=== PATIENT | male | born 1940 | race Caucasian/White ===

== ENCOUNTER 2017-01-14 11:20 | Emergency (ER) | payer MEDICARE ==
[~2017-01-14] VITALS: Ht 175.3 cm; Wt 83.9 kg
[~2017-01-14 11:20] MED LIST: ASPI81TA85 PO; ATOR40TA PO; CLOP75TA2 PO; LISI-538 PO; METF850T PO; OMEP20CA3 PO; PRESCAP PO; TOPR25TA PO
[2017-01-14] MEDS ORDERED: METF850T PO (11:33)
[2017-01-14] MEDS ORDERED: METO50TA2 PO (11:33)
[2017-01-14] MEDS ORDERED: cefTRIAXone SOD 1 GM in D5W MINI-BAG PLUS 50 ML IV ONE (12:00)
[2017-01-14] MEDS ORDERED: NS 1,000 ML IV ONE (12:00)
[2017-01-14] MEDS ORDERED: TETANUS/DIPHTHERIA TOX ADSORB ADULT 0.5ML SYR/VIAL (90714) IM ONE (12:00)
[2017-01-14] MEDS ORDERED: ACETAMINOPHEN 325 MG TAB PO ONE (12:00)
[2017-01-14] MEDS ORDERED: MORPHINE 2 MG/ML 1ML SYRINGE IV ONE (12:15)
[2017-01-14 12:26] LABS: BASO # 0.1 K/mm3 (0.0-0.2); BASO % 1.1 % (0.0-1.0); EOS # 0.3 K/mm3 (0.0-0.50); EOS % 3.6 % (0.0-3.0); LARGE UNSTAINED CELL # 0.2 K/mm3 (0.0-0.4); LARGE UNSTAINED CELL % 1.8 % (0.0-4.0); LYMPH # 1.7 K/mm3 (1.5-4.5); LYMPH % 18.4 % (24.0-44.0); MEAN CORPUSCULAR HEMOGLOBIN 29.3 pg (27.0-33.0); MEAN CORPUSCULAR HGB CONC 33.2 g/dl (32.0-36.5); MEAN CORPUSCULAR VOLUME 88.2 fl (80.0-96.0); MONO # 0.4 K/mm3 (0.0-0.8); MONO % 4.3 % (0.0-5.0); NEUTROPHILS # 5.9 K/mm3 (1.8-7.7); NEUTROPHILS % 70.8 % (36.0-66.0); PLATELET COUNT, AUTOMATED 280 k/mm3 (150-450); RED CELL DISTRIBUTION WIDTH 13.2 % (11.5-14.5); WHITE BLOOD COUNT 8.4 K/mm3 (4.0-10.0)
[2017-01-14] MEDS ORDERED: LIDOCAINE 2% MDV 20 ML VIAL As Ordered ONE (12:43)
[2017-01-14 12:44] LABS: ANION GAP 7 MEQ/L (8-16); BLOOD UREA NITROGEN 17 MG/DL (7-18); CALCIUM LEVEL 8.5 MG/DL (8.8-10.2); CARBON DIOXIDE LEVEL 27 MEQ/L (21-32); CHLORIDE LEVEL 106 MEQ/L (98-107); CREATININE FOR GFR 0.92 MG/DL (0.70-1.30); GLOMERULAR FILTRATION RATE > 60.0 (>42); GLUCOSE, FASTING 149 MG/DL (83-110); POTASSIUM SERUM 4.1 MEQ/L (3.5-5.1); SODIUM LEVEL 140 MEQ/L (136-145)
[2017-01-14] MEDS ORDERED: LIDOCAINE 2% MDV 20 ML VIAL SC ONE (12:45)
--- NOTE | 2017-01-14 13:52 | REP ---
LEFT HAND: HISTORY: Partial amputation 4th digit. There has been traumatic amputation of the distal aspect of the 4th digit which includes the distal aspect of the middle phalanx. There is overlying bandage material obscuring the bony detail and also soft tissue detail. Signed by Jay Boston DO 01/14/2017 02:47 P
[2017-01-14] MEDS ORDERED: AUGM875T27 PO (14:29)
[2017-01-14] MEDS ORDERED: OXYC1TAB23 PO (14:29)
[2017-01-14 15:16] VITALS: BP 169/80
--- NOTE | 2017-01-14 16:33 | REP ---
LEFT HAND: REASON: Followup. COMPARISON: Earlier today. There has been partial amputation of the 4th digit. The only remaining features are all of the proximal phalanx and approximately one-half of the middle phalanx. Bandage material is seen surrounding the soft-tissue defect. Chronic changes seen involving the hand and wrist. IMPRESSION: Post-procedural findings as described above. Signed by Jay Boston DO 01/15/2017 09:55 A
--- NOTE | 2017-01-15 01:32 | ER ---
DATE OF CONSULTATION: 01/14/2017 SUBJECTIVE: The patient presented to the emergency room after sustaining an injury to his left hand ring finger with a hydraulic wood splitter. Noticed complete amputation of that involved digit and presented promptly to the emergency room. This is his isolated complaint. I came and saw the patient promptly. He had a digital tourniquet in place, which was removed right away. At this point, he had active venous oozing out of the tip of the oblique laceration and a complete amputation of the left hand ring finger. PAST MEDICAL HISTORY: He is taking blood thinners. OBJECTIVE: Awake, alert and oriented times three. Well-appearing male in no acute distress resting comfortably in bed. Again, after removing the digital tourniquet, venous bleeding was controlled with the battery powered cautery and following that by a hemostat clamp applied to the digital vein with satisfactory effect. This was an oblique complete amputation of the ring finger with an exposed bone and exposed tendon. He did have intact flexion and extension at the middle phalanx. The x-rays showed a complete amputation of the involved digit at the distal interphalangeal joint level. ASSESSMENT: Complete amputation of left hand ring finger at the level of the middle phalanx as above. PLAN: After discussing all of the options with him to include the possibility of some form of reattachment, he elected to go forward with acute revision amputation. The wound was copiously irrigated. I did have to remove a centimeter or so of the middle phalanx in order to perform a tension free closure. This was done with satisfactory effect with nylon sutures. Following this, hemostasis was intact and the bone was completely covered. He still maintained intact flexion and extension at the proximal interphalangeal joint. The wound edges were pink and well perfused. Post revision amputation x-rays confirmed the shortened middle phalanx, as well diffuse age-related changes and osteoarthritis and as well an apparent remote well-healed fracture of the middle phalanx of the middle finger. He did have a small dorsal laceration in this area with no obvious tendon involvement. He was placed in sterile dressings. He had been given a dose of intravenous (IV ) antibiotics. He will be discharged to home on oral antibiotics. Local monitoring. If he notices a soaking through or bleeding through, he is to present promptly to the emergency room, otherwise keep the dressings clean and dry. Followup in less than 48-72 hours with the orthopedic group for evaluation and wound check. The stitches to stay in place for 10-14 days. All of his questions were answered and he is satisfied with the treatment plan at this time. [place]
== END 2017-01-14 15:18 | disposition home or self-care (01) ==
LOC: M ED 12:12
DX: S68.115A Complete traumatic metacarpophalangeal amputation of left ring finger, initial encounter (principal); W31.89XA Contact with other specified machinery, initial encounter; Y92.89 Other specified places as the place of occurrence of the external cause; Y93.89 Activity, other specified; Y99.8 Other external cause status; I10 Essential (primary) hypertension; E11.9 Type 2 diabetes mellitus without complications; E78.00 Pure hypercholesterolemia, unspecified; K21.9 Gastro-esophageal reflux disease without esophagitis; Z95.5 Presence of coronary angioplasty implant and graft; Z79.899 Other long term (current) drug therapy; Z79.82 Long term (current) use of aspirin; Z79.01 Long term (current) use of anticoagulants; Z79.84 Long term (current) use of oral hypoglycemic drugs; Z87.891 Personal history of nicotine dependence
CPT/HCPCS: 11042; 12002; 73130; 80048; 85025; 90714; 99284; J0696

== ENCOUNTER 2017-06-21 06:48 | Day surgery (SDC) | payer MEDICARE ==
[~2017-06-21] VITALS: Ht 172.7 cm; Wt 85.7 kg
[~2017-06-21 06:48] MED LIST changes: -ATOR40TA PO; +ATOR40TA75 PO; +AUGM875T28 PO; +LISI20TA PO; -METF850T PO; +METF850T4 PO; +METO25TA4 PO; +METO50TA7 PO; +OXYC1TAB23 PO
[2017-06-21] MEDS ORDERED: PHENYLEPHRINE 2.5% OPHTH SOL 2ML XX ONE (07:00)
[2017-06-21] MEDS ORDERED: LIDOCAINE 1% MDV 20ML VIAL SQ PRN (07:00)
[2017-06-21] MEDS ORDERED: LR 500 ML IV SCH (07:00)
[2017-06-21] MEDS ORDERED: TROPICAMIDE 1% OPHTH SOLN 2ML XX ONE (07:00)
[2017-06-21] MEDS ORDERED: OFLOXACIN 0.3 % (OCUFLOX) OPTH SOL 5ML XX ONE (07:00)
[2017-06-21] MEDS ORDERED: PROPARACAINE 0.5% OPHTH SOL 15ML XX ONE (07:00)
[2017-06-21] MEDS ORDERED: fentaNYL 100 MCG/2 ML INJECTION (J3010) As Ordered ONE (07:08)
[2017-06-21] MEDS ORDERED: MIDAZOLAM INJ 2 MG/2 ML VIAL (J2250) As Ordered ONE (07:08)
[2017-06-21] MEDS ORDERED: POVIDONE-IODINE 5% OPHTH PREP SOL 30ML As Ordered ONE (07:44)
[2017-06-21] MEDS ORDERED: ACETYLCHOLINE OPHTH SOLN 1% 2ML (MIOCHOL-E) As Ordered ONE (07:44)
[2017-06-21] MEDS ORDERED: CEFUROXIME 1MG/0.1ML INTRACAMERAL INJ As Ordered ONE (07:45)
[2017-06-21] MEDS ORDERED: BALANCED SALT IRRIGATION SOLUTION 500ML BAG (FOR OR EYE MACHINE) As Ordered ONE (07:45)
[2017-06-21] MEDS ORDERED: TETRACAINE 0.5% OPHTH SOLN 4ML As Ordered ONE (07:45)
[2017-06-21] MEDS ORDERED: DUOVISC (0.50ML VISCOAT/0.55ML PROVISC) OPHTH KIT As Ordered ONE (07:45)
[2017-06-21] MEDS ORDERED: LIDOCAINE 0.75%/EPINEPHRINE 0.025% IN BSS 1ML SYR INTRACAMERAL (OR ONLY) As Ordered ONE (07:45)
[2017-06-21] MEDS ORDERED: hydrALAZINE INJ 20 MG/ML VIAL As Ordered ONE (08:15)
[2017-06-21 09:00] VITALS: BP 188/86
[2017-06-21] MEDS ORDERED: LR 1,000 ML IV SCH (09:00)
[2017-06-21] MEDS ORDERED: ACETAMINOPHEN TAB 650MG DOSE (2X325MG) PO PRN (09:00)
--- NOTE | 2017-06-21 20:13 | RO ---
DATE OF PROCEDURE; 06/21/2017 PREOPERATIVE DIAGNOSIS: Visually significant nuclear sclerotic cataract right POSTOPERATIVE DIAGNOSIS: Visually significant nuclear sclerotic cataract right eye. PROCEDURE: Cataract extraction with use of phacoemulsification and placement of intraocular lens, AU00T0, 21.5 Diopter, right eye. SURGEON: Ottoniel Foster DO CERTIFIED ORTHOPTIST: ANESTHESIA: Local with monitored anesthesia care (MAC). COMPLICATIONS: None. POSTOPERATIVE CONDITION: Stable. INDICATION FOR SURGERY: Blurred vision left eye affecting patient's activities of daily living. DESCRIPTION OF PROCEDURE: The patient was seen in the preoperative area and properly identified. The correct operative eye was identified and marked. Attention was turned to that eye. The patient received topical antibiotics in the preoperative area. The patient then received topical dilating drops consisting of tropicamide and phenylephrine. The patient was then transferred to the operating room. The correct side was re-identified. The patient received topical anesthetics and antibiotics on the surface of the eye. The eye was prepped and draped in a sterile fashion. The upper and lower eyelids were isolated with Tegaderm tape, and the lids were held open with an adjustable speculum. Using a sideport blade, a paracentesis incision was made. Intraocular preservative-free lidocaine was then injected into the anterior chamber. Viscoelastic was then injected into the anterior chamber through the paracentesis. Using a 2.4 mm sharp-tipped keratome, the anterior chamber was entered via a temporal clear corneal incision. A continuous curvilinear capsulorrhexis was created with the aid of a 26-gauge cystotome and Utrata forceps. Hydrodissection was performed with balanced salt solution (BSS) on a blunt cannula until the nucleus was freely mobile. The crystalline lens was phacoemulsified and aspirated. Additional cohesive viscoelastic was placed into the capsular bag to deepen it. An AU00T0 21.5 Diopter lens was placed into the capsular bag and confirmed by visualizing the continuous curvilinear capsulorrhexis. Additional irrigation and aspiration was used to remove cortical material and remaining viscoelastic. The clear corneal incision was hydrated with BSS on a blunt cannula. The lens was well positioned. The incisions were then tested for leaks and found to be negative. The eye was then palpated for appropriate pressure and adjusted accordingly with BSS. The eyelid speculum was carefully removed. A shield was placed. The patient tolerated the procedure well and was discharged to the recovery unit in a stable condition. [place]
== END 2017-06-21 09:10 | disposition home or self-care (01) ==
LOC: M SDC 06:48
PROVIDERS: ATTEND Ophthalmology
DX: H25.11 Age-related nuclear cataract, right eye (principal); I25.10 Atherosclerotic heart disease of native coronary artery without angina pectoris; Z98.61 Coronary angioplasty status; E11.9 Type 2 diabetes mellitus without complications; Z79.82 Long term (current) use of aspirin; Z79.899 Other long term (current) drug therapy; I10 Essential (primary) hypertension; E78.5 Hyperlipidemia, unspecified; K21.9 Gastro-esophageal reflux disease without esophagitis; F32.9 Major depressive disorder, single episode, unspecified; Z87.891 Personal history of nicotine dependence; Z86.73 Personal history of transient ischemic attack (TIA), and cerebral infarction without residual deficits
CPT/HCPCS: 66984; J2250; J3010; V2632

== ENCOUNTER → 2018-06-26 | Outpatient (CLI) | payer MEDICARE ==
[2018-06-26 16:50] LABS: BASO # 0.1 10^3/uL (0.0-0.2); BASO % 0.6 % (0.0-1.0); EOS # 0.2 10^3/uL (0.0-0.50); EOS % 1.8 % (0.0-3.0); HEMATOCRIT 32.6 % (42.0-52.0); HEMOGLOBIN 10.9 g/dl (13.5-17.5); IMMATURE GRANULOCYTE % 0.3 % (0-3.0); LYMPH # 2.3 10^3/uL (1.5-4.5); LYMPH % 25.1 % (24.0-44.0); MEAN CORPUSCULAR HEMOGLOBIN 29.9 pg (27.0-33.0); MEAN CORPUSCULAR HGB CONC 33.4 g/dl (32.0-36.5); MEAN CORPUSCULAR VOLUME 89.6 fl (80.0-96.0); MONO # 0.6 10^3/uL (0.0-0.8); MONO % 6.7 % (0.0-5.0); NEUTROPHILS # 5.9 10^3/uL (1.8-7.7); NEUTROPHILS % 65.5 % (36.0-66.0); PLATELET COUNT, AUTOMATED 292 10^3/uL (150-450); RED BLOOD COUNT 3.64 10^6/uL (4.30-6.10); RED CELL DISTRIBUTION WIDTH 12.5 % (11.5-14.5); WHITE BLOOD COUNT 9.1 10^3/uL (4.0-10.0)
[2018-06-26 17:20] LABS: ANION GAP 9 MEQ/L (8-16); BLOOD UREA NITROGEN 21 MG/DL (7-18); CALCIUM LEVEL 8.4 MG/DL (8.8-10.2); CARBON DIOXIDE LEVEL 27 MEQ/L (21-32); CHLORIDE LEVEL 105 MEQ/L (98-107); CREATININE FOR GFR 1.08 MG/DL (0.70-1.30); GLOMERULAR FILTRATION RATE > 60.0 (>42); GLUCOSE, FASTING 91 MG/DL (70-100); POTASSIUM SERUM 4.6 MEQ/L (3.5-5.1); SODIUM LEVEL 141 MEQ/L (136-145)
== END ==
LOC: M LAB 16:17
DX: I70.213 Atherosclerosis of native arteries of extremities with intermittent claudication, bilateral legs (principal)
CPT/HCPCS: 80048

== ENCOUNTER → 2018-07-04 | Outpatient (CLI) | payer MEDICARE ==
[~2018-07-04] MED LIST changes: -ASPI81TA85 PO; -ATOR40TA75 PO; -AUGM875T28 PO; -CLOP75TA2 PO; +HEPARIN 1,000 UNITS/ML 10ML VIAL (FOR RADIOLOGY& DIALYSIS ONLY) As Ordered; +ISOVUE-300 61% 50ML VIAL (Q9967) As Ordered; +LIDOCAINE 2% MDV 20 ML VIAL As Ordered; -LISI-538 PO; -LISI20TA PO; +LISINOPRIL 20 MG TAB PO; -METF850T4 PO; -METO25TA4 PO; -METO50TA7 PO; +METOPROLOL TART 25 MG TABLET PO; +MIDAZOLAM INJ 2 MG/2 ML VIAL (J2250) As Ordered; -OMEP20CA3 PO; -OXYC1TAB23 PO; -PRESCAP PO; -TOPR25TA PO; +fentaNYL 100 MCG/2 ML INJECTION (J3010) As Ordered
== END | disposition home or self-care (01) ==
LOC: M IRPRO 06:10
DX: I70.211 Atherosclerosis of native arteries of extremities with intermittent claudication, right leg (principal); I70.235 Atherosclerosis of native arteries of right leg with ulceration of other part of foot; L97.519 Non-pressure chronic ulcer of other part of right foot with unspecified severity; I25.10 Atherosclerotic heart disease of native coronary artery without angina pectoris; I10 Essential (primary) hypertension
CPT/HCPCS: 36247

== ENCOUNTER 2018-08-23 12:15 | Day surgery (SDC) | payer MEDICARE ==
[~2018-08-23] VITALS: Ht 172.7 cm; Wt 88.9 kg
[~2018-08-23 12:15] MED LIST changes: +ADVI200T PO; +ASPI81TA85 PO; +ATOR40TA75 PO; +AUGM875T28 PO; +CLOP75TA2 PO; +GLYCOPYRROLATE INJ 0.2 MG/ML 2 ML VIAL As Ordered ONE; -HEPARIN 1,000 UNITS/ML 10ML VIAL (FOR RADIOLOGY& DIALYSIS ONLY) As Ordered; -ISOVUE-300 61% 50ML VIAL (Q9967) As Ordered; +LIDOCAINE 2% INJ 100 MG/5 ML SDV (FOR ANES.) As Ordered ONE; -LIDOCAINE 2% MDV 20 ML VIAL As Ordered; +LISI-538 PO; +LISI20TA PO; -LISINOPRIL 20 MG TAB PO; +METF850T4 PO; +METO25TA4 PO; +METO50TA7 PO; -METOPROLOL TART 25 MG TABLET PO; -MIDAZOLAM INJ 2 MG/2 ML VIAL (J2250) As Ordered; +MIDAZOLAM INJ 2 MG/2 ML VIAL (J2250) As Ordered ONE; +NEOSTIGMINE 10 MG/10 ML VIAL (J2710) As Ordered ONE; +OMEP20CA3 PO; +ONDANSETRON 4MG/2ML VIAL (J2405) As Ordered ONE; +OXYC1TAB23 PO; +PRESCAP PO; +PROPOFOL 200 MG/20 ML VIAL As Ordered ONE; +ROCURONIUM BROMIDE 50 MG/5 ML VIAL As Ordered ONE; +TOPR25TA13 PO; +TYLE500T78 PO; +dexameTHASONE 4 MG/ML 1ML VIAL (J1100) As Ordered ONE; -fentaNYL 100 MCG/2 ML INJECTION (J3010) As Ordered; +fentaNYL 100 MCG/2 ML INJECTION (J3010) As Ordered ONE
[2018-08-23] MEDS ORDERED: LR 1,000 ML IV SCH (12:45)
--- NOTE | 2018-08-23 13:05 | HPEPDOC ---
General Date of Admission Aug 23, 2018 at 12:15 Attending Physician: Juvencio Arizmendi MD Chief Complaint The patient is a 78-year-old male admitted with a reason for Occlusive Per ipheral Vascular Disease History of Present Illness Patient is a 78-year-old male with a nonhealing right foot ulcer that began in October and who is been treated by Dr. Rivera. Patient also has pain in his right foot with ambulation. Patient was seen and evaluated noted to have no pulses palpable distally in the right lower extremity. Patient underwent ult rasound evaluation of his right lower extremity which showed femoral popliteal and tibial peroneal arterial atherosclerotic occlusive disease. Patient subsequently underwent an angiogram which showed a near occlusive highly calcific lesion in the superficial femoral artery in the upper thigh which was not amenable to endovascular intervention. Dr Arizmendi discussed with the patient at the time of the angiogram performing a short segment endarterectomy and/or bypass in the region of the near occlusive lesion. Patient denies rest pain, TIAs, amaurosis fugax, paralysis or paresis of the extremity, nausea, fevers, chills, vomiting, chest pain, or shortness of breath. Patient was admitted to the hospital today for femoral endarterectomy and/or bypass in the region of near occlusive lesion. Home Medications Scheduled (Lisinopril/Hydrochlorothi 20-12.5 mg) 1 Tab Tab, 1 TAB PO DAILY, (Reported) Aspirin (Aspir-81) 81 Mg Tab, 81 MG PO DAILY, (Reported) Atorvastatin Calcium (Atorvastatin Calcium) 40 Mg Tab, 40 MG PO DAILY, (Reported) Clopidogrel Bisulfate (Clopidogrel) 75 Mg Tab, 75 MG PO DAILY, (Reported) Metformin Hydrochloride (Metformin HCl) 850 Mg Tab, 850 MG PO TID, (Reported) Metoprolol Tartrate (Metoprolol Tartrate) 25 Mg Tab, 25 MG PO BID, (Reported) Multivitamin Areds (Preservision Areds) 1 Cap Cap, 1 CAP PO BID, (Reported) Omeprazole (Omeprazole) 20 Mg Cap, 20 MG PO DAILY, (Reported) Scheduled PRN Acetaminophen (Tylenol Extra Strength) 500 Mg Tab, 1,000 MG PO TID PRN for PAIN, (Reported) Ibuprofen (Advil) 200 Mg Tab, 400 MG PO Q12HP PRN for PAIN, (Reported) Allergies Coded Allergies: No Known Allergies (Unverified , 07/26/18) Past Medical History Medical History 1. Hypertension 2. Hypercholesterolemia 3. Heart Disease 4. Peripheral vascular disease Surgical History 1. Colonoscopy - 03/30/2016 2. Stent - 10/17/2012 3. Left Ring Finger Amputation - 01/14/2017 4. Eye Implant - RIGHT 06/21/2017 LEFT 07/05/2017 5. Two Pins In Lower Jaw To Hold Plate Family History Significant Family History: Diabetes Social History * Smoker: non-smoker Alcohol: sober (2-3 /day) Drugs: denies Review of Systems Constitutional: Denies: Chills, Fever, Night Sweats Eyes: Denies: Pain, Vision change ENT: Denies: Head Aches, Ear Pain, Dysphagia Skin: Denies: Rash, Lesions, Breakdown Pulmonary: Denies: Dyspnea, Cough Cardiovascular: Denies: Chest Pain, Palpitations, Orthopnea, Paroxysmal Noc. Dyspnea, Lt Headedness Gastrointestinal: Denies: Nausea, Vomiting, Abdominal Pain, Diarrhea Genitourinary: Denies: Dysuria, Frequency, Incontinence, Retention Hematologic: Denies: Bruising, Bleeding Excessively Musculoskeletal: Reports: Foot Pain (claudication and nonhealing ulcer); Denies: Neck Pain, Back Pain, Joint Pain, Muscle Pain, Spasms Neurological: Denies: Weakness, Numbness, Change in speech, Confusion Psych: Reports: Mood Normal; Denies: Depression, Memory Issues Physical Examination General Exam: Positive: Alert, No Acute Distress Eye Exam: Positive: PERRLA, Conjunctiva & lids normal, EOMI ENT Exam: Positive: Atraumatic Neck Exam: Positive: Supple, +2 carotid pulse wo bruit Chest Exam: Positive: Clear to auscultation, Normal air movement; Negative: Rales, Rhonchi, Wheezing, Other Heart Exam: Positive: Rate Normal, Regular Rhythm, Normal S1, Normal S2; Negative: Gallops, Murmurs, Rubs Abdomen Exam: Positive: Normal bowel sounds, Soft; Negative: Tenderness, Mass Extremity Exam: Positive: Tenderness (Nonhealing ulcer in right foot with tenderness ); Negative: Clubbing, Cyanosis, Edema, Normal pulses (Rt DP and PT not palpable, DP audible by Doppler, Lt DP and PT audible), Swelling, Other Neuro Exam: Positive: Normal Speech, Strength at 5/5 X4 ext, Cranial Nerves 3- 12 NL Psych Exam: Positive: Mental status NL, Mood NL, Oriented x 3 Vital Signs Temp 97, CO 6, RR 18, BP 205/93, PSO2 96% on RA Assessment/Plan 1 Atherosclerotic occlusive disease of RLE SFA, PA and TPT. 2.HTN 3. HLD 4. CAD Plan / VTE VTE Prophylaxis Ordered?: Yes Plan Plan Patient is a 78-year-old male with a nonhealing right foot ulcer and pain in his right foot with ambulation. Arterial US showed femoral popliteal and tibial peroneal arterial atherosclerotic occlusive disease. The following angiogram showed a near occlusive highly calcific lesion in the SFA in the upper thigh which was not amenable to endovascular intervention. Recommendation was to undergo a short segment endarterectomy of this region and/or bypass around the region for better inflow to the RLE. The procedure was described and explained in detail to the patient. Risks, benefits and alternative treatment options were discussed with the patient. Patient voices understanding of these risks, benefits and alternative treatment options. Consent was signed. Preop lab ordered and reviewed. NPO Proceed with Rt femoral endarterectomy and/or bypass around the lesion this afternoon. MARLEY COTA PA-C Aug 23, 2018 13:05
[2018-08-23] MEDS ORDERED: dexameTHASONE 4 MG/ML 1ML VIAL (J1100) As Ordered ONE (13:45)
[2018-08-23] MEDS ORDERED: ONDANSETRON 4MG/2ML VIAL (J2405) As Ordered ONE (13:45)
[2018-08-23] MEDS ORDERED: NEOSTIGMINE 10 MG/10 ML VIAL (J2710) As Ordered ONE (13:45)
[2018-08-23] MEDS ORDERED: fentaNYL 100 MCG/2 ML INJECTION (J3010) As Ordered ONE (14:16)
[2018-08-23] MEDS ORDERED: MIDAZOLAM INJ 2 MG/2 ML VIAL (J2250) As Ordered ONE (14:17)
[2018-08-23] MEDS ORDERED: HEPARIN 1,000 UNITS/ML 10ML VIAL (FOR RADIOLOGY& DIALYSIS ONLY) As Ordered ONE (14:17)
[2018-08-23] MEDS ORDERED: LIDOCAINE 2% MDV 20 ML VIAL As Ordered ONE (14:17)
[2018-08-23] MEDS ORDERED: ISOVUE-300 61% 50ML VIAL (Q9967) As Ordered ONE (14:18)
[2018-08-23 16:30] VITALS: BP 205/93
[2018-08-23 17:00] VITALS: BP 204/91
[2018-08-23 17:30] VITALS: BP 186/84
[2018-08-23 18:34] VITALS: BP 187/86
[2018-08-23 19:30] VITALS: BP 148/64
--- NOTE | 2018-08-29 09:02 | REPIR ---
DATE OF PROCEDURE: 08/23/2018 ATTENDING SURGEON: Dr. Alejandro Arizmendi SENIOR ADMINISTRATOR SUPPORT: Marilynn Guzmán and Marie Arzola. PREOPERATIVE DIAGNOSES: Nonhealing right foot ulcers, right foot ischemia with rest pain, chronic total occlusion of the right superficial femoral artery. POSTOPERATIVE DIAGNOSES: Nonhealing right foot ulcers, right foot ischemia with rest pain, chronic total occlusion of the right superficial femoral artery. PROCEDURE: Left common femoral arterial cannulation, selective right common femoral artery catheter placement with right lower extremity angiogram, selective right superficial femoral artery catheter placement with right lower extremity angiogram, selective right popliteal artery catheter placement with right lower extremity angiogram, right superficial femoral artery angioplasty and stent with a 7 x 120 Alia drug-eluting stent postdilated with a 6 x 200 balloon, right popliteal artery angioplasty and stenting with a 7 x 120 Alia drug-eluting stent postdilated with a 6 x 200 balloon, right common femoral arterial angioplasty with 6 x 20 balloon, Mynx closure of the left common femoral arteriotomy. INDICATION: The patient is a 78-year-old male with nonhealing ulcers on his right foot as well as rest pain and severe ischemia. The patient underwent angiography showing severe high-grade calcific occlusion of his superficial femoral artery with severe disease along the course of the superficial femoral and popliteal arteries. The patient will now undergo angiogram of the right lower extremity with angioplasty, stenting and possibly atherectomy. Risks, benefits, and alternative treatment options were discussed with the patient. ANESTHESIA: Local with sedation with 2 mg of Versed, 1 mcg of fentanyl, and 10 mL of 2% lidocaine. FLUOROSCOPIC TIME: 7.5 minutes. CONTRAST: 10 mL. SEDATION TIME: From 14:32 p.m. to 15:43 p.m. for a total of 71 minutes. HEPARIN: 7000 units. COMPLICATIONS: None. DRAINS: None. SPECIMENS: None. IMPLANTS: 7 x 120 drug-eluting stent in the right superficial femoral artery 7 x 120 Alia drug-eluting stent in the right popliteal artery, Mynx closure used to close the arteriotomy in the left common femoral artery. Sedation was administered by the nurse in the room. Cardiopulmonary monitoring was performed by the nurse the room. Both of these were performed under my direct supervision. I was present for and directed the entire case. PROCEDURE: The patient was taken to the angiography suite, placed supine on the angiography room table and the patient was prepped and draped in a standard surgical fashion. The left common femoral artery was cannulated with a micropuncture needle after anesthetizing overlying skin with 2% lidocaine. The micropuncture wire was advanced through the micropuncture needle, which was upsized to a micropuncture sheath. A Bentson wire was advanced through the micropuncture sheath, which was upsized to a 6-German sheath. The Omni flush catheter was used to traverse over the bifurcation of the iliac arteries and placed in the right common femoral artery and an angiogram was performed. The catheter wire was used to traverse through the occlusion and superficial femoral artery and reenter into the superficial femoral artery and a selective right superficial femoral artery angiogram was performed confirming intraluminal positioning, which was noted. The right superficial femoral artery was then angioplastied and stented with a 7 x 120 Alia drug-eluting stent and postdilated with a 6 x 200 balloon. The distal superficial femoral and popliteal artery showed atherosclerotic arterial occlusive disease and these were angioplastied with a 6 x 200 balloon with a followup angiogram showing residual stenosis. The right popliteal artery was then angioplastied and stented with a 7 x 120 Alia drug-eluting stent and postdilated with a 6 x 200 balloon. There was also stenosis noted in the right common femoral artery and this was angioplastied with a 6 x 200 balloon. A completion angiogram showed resolution of the stenoses with excellent flow through the common femoral artery into the superficial femoral artery and popliteal artery and distally with no residual stenosis remaining. Catheters and wires were removed. A Mynx closure device was used to close the arteriotomy in the left common femoral artery with an additional 10 minutes of adjunctive pressure applied for hemostasis. Dressings were then applied. The patient tolerated the procedure well. All instrument, sponge and needle counts were correct at the end the case. There were no complications. Dr. Arizmendi was present for and directed the entire case. The patient was transferred to the holding area and subsequently discharged in stable condition.
== END 2018-08-23 19:50 | disposition home or self-care (01) ==
LOC: UNDOADMIN 12:15 → M SDC 12:15 → M OR 12:15 → EDSTATUS 15:00 → M MS5PR 16:10 → M OR 16:10 → UNDODISIN 19:50 → M SDC 19:50
PROVIDERS: ATTEND Surgery Vascular Surgery
DX: I70.235 Atherosclerosis of native arteries of right leg with ulceration of other part of foot (principal); I70.221 Atherosclerosis of native arteries of extremities with rest pain, right leg; I70.92 Chronic total occlusion of artery of the extremities; L97.519 Non-pressure chronic ulcer of other part of right foot with unspecified severity
CPT/HCPCS: 37226; 99152; 99153; C1725; C1760; C1769; C1874; C1887; C1894; J2250; J3010; Q9967

== ENCOUNTER 2022-02-07 15:09 | Inpatient (IN) | payer MEDICARE ==
[~2022-02-07] VITALS: Ht 175.3 cm; Wt 89.5 kg
[2022-02-07] MEDS: OCUVITE 1 TAB PO SCH (03:05)
[~2022-02-07 15:09] MED LIST changes: -ASPI81TA85 PO; +ASPI81TA86 PO; -GLYCOPYRROLATE INJ 0.2 MG/ML 2 ML VIAL As Ordered ONE; -LIDOCAINE 2% INJ 100 MG/5 ML SDV (FOR ANES.) As Ordered ONE; -LISI-538 PO; -LISI20TA PO; +LISI20TA33 PO; +LISI20TA35 PO; -MIDAZOLAM INJ 2 MG/2 ML VIAL (J2250) As Ordered ONE; -NEOSTIGMINE 10 MG/10 ML VIAL (J2710) As Ordered ONE; +OMEP1CAP73 PO; -OMEP20CA3 PO; -ONDANSETRON 4MG/2ML VIAL (J2405) As Ordered ONE; -PROPOFOL 200 MG/20 ML VIAL As Ordered ONE; -ROCURONIUM BROMIDE 50 MG/5 ML VIAL As Ordered ONE; +TOPR25TA PO; -TOPR25TA13 PO; -dexameTHASONE 4 MG/ML 1ML VIAL (J1100) As Ordered ONE; -fentaNYL 100 MCG/2 ML INJECTION (J3010) As Ordered ONE
[2022-02-07 19:32] LABS: BASO # 0.1 10^3/uL (0.0-0.2); BASO % 0.8 % (0.0-1.0); EOS # 0.2 10^3/uL (0.0-0.5); EOS % 3.4 % (0.0-3.0); HEMATOCRIT 33.5 % (42.0-52.0); HEMOGLOBIN 10.3 g/dl (13.5-17.5); LYMPH # 1.1 10^3/uL (1.5-5.0); LYMPH % 16.9 % (24.0-44.0); MEAN CORPUSCULAR HEMOGLOBIN 27.4 pg (27.0-33.0); MEAN CORPUSCULAR HGB CONC 30.7 g/dl (32.0-36.5); MEAN CORPUSCULAR VOLUME 89.1 fl (80.0-96.0); MONO # 0.4 10^3/uL (0.0-0.8); MONO % 6.4 % (2.0-8.0); NEUTROPHILS # 4.5 10^3/uL (1.5-8.5); NEUTROPHILS % 71.9 % (36.0-66.0); PLATELET COUNT, AUTOMATED 224 10^3/uL (150-450); RED BLOOD COUNT 3.76 10^6/uL (4.30-6.10); WHITE BLOOD COUNT 6.2 10^3/uL (4.0-10.0)
[2022-02-07 19:40] LABS: INR 0.89; PROTHROMBIN TIME 12.4 SECONDS (12.7-14.5)
[2022-02-07 19:41] LABS: PARTIAL THROMBOPLASTIN TIME 33.7 SECONDS (25.9-37.0)
[2022-02-07 19:56] LABS: ALBUMIN 3.4 GM/DL (3.2-5.2); ALT/SGPT 20 U/L (12-78); BILIRUBIN,DIRECT < 0.1 MG/DL (0.0-0.2); BILIRUBIN,TOTAL 0.3 MG/DL (0.2-1.0); BLOOD UREA NITROGEN 18 MG/DL (7-18); CALCIUM LEVEL 9.4 MG/DL (8.8-10.2); CARBON DIOXIDE LEVEL 26 MEQ/L (21-32); CHLORIDE LEVEL 108 MEQ/L (98-107); CK-MB VALUE MASS < 1.0 NG/ML (<3.6); CPK CREATINE PHOSPHOKINASE 48 U/L (39-308); CREATININE FOR GFR 1.16 MG/DL (0.70-1.30); GLOMERULAR FILTRATION RATE > 60.0 (>42); GLUCOSE, FASTING 125 MG/DL (70-100); LIPASE 169 U/L (73-393); MB/CK RELATIVE INDEX 2.08 (< OR =4); POTASSIUM SERUM 3.9 MEQ/L (3.5-5.1); SODIUM LEVEL 142 MEQ/L (136-145); TOTAL PROTEIN 7.4 GM/DL (6.4-8.2)
[2022-02-07 20:19] LABS: RSV AMPLIFICATION NEGATIVE (NEGATIVE)
[2022-02-07] MEDS ORDERED: cefTRIAXone SOD 2 GM in D5W MINI-BAG PLUS 50 ML IV ONE (20:35)
[2022-02-07] MEDS: FERROUS SULFATE 325MG TAB PO SCH (21:00)
[2022-02-07] MEDS: ATORVASTATIN 20 MG TAB PO SCH (21:00)
[2022-02-07] MEDS: METOPROLOL TART 25 MG TABLET PO SCH (21:00)
[2022-02-07] MEDS: CLOPIDOGREL 75 MG TAB PO SCH (21:00)
[2022-02-07] MEDS ORDERED: GLUCOSE 4GM CHEW TABLET PO PRN (21:55)
[2022-02-07] MEDS ORDERED: DEXTROSE 50% 50 ML SYRINGE IV PRN (21:55)
[2022-02-07] MEDS ORDERED: GLUCAGON INJ 1MG VIAL SC PRN (21:55)
[2022-02-07 22:46] LABS: HEMOGLOBIN A1c 7.8 %
[2022-02-07] MEDS ORDERED: VANCOMYCIN HCL 1,000 MG, VIAL MATE ADAPTER 1 EACH in NS 250 ML IV ONE (23:00)
[2022-02-07] MEDS ORDERED: GLIP5TAB20 PO (23:10)
[2022-02-07] MEDS ORDERED: LISI20TA35 PO (23:10)
[2022-02-07] MEDS ORDERED: ASPI-161 PO (23:10)
[2022-02-07] MEDS ORDERED: FERR325T3 PO (23:10)
[2022-02-07] MEDS ORDERED: CYAN100049 PO (23:10)
[2022-02-07] MEDS ORDERED: ACET-897 PO (23:10)
[2022-02-07] MEDS ORDERED: HOME MED LIST COMPLETE! XX SCH (23:15)
[2022-02-08] VITALS (8 sets, daily range): BP systolic 160–194; BP diastolic 70–87
[2022-02-08] MEDS ORDERED: VANCOMYCIN HCL 500 MG in D5W MINI-BAG PLUS 100 ML IV ONE ×2
[2022-02-08] MEDS: ACETAMINOPHEN 500 MG TAB PO PRN ×2 (00:29→16:52)
[2022-02-08 07:06] LABS: BASO % 0.8 % (0.0-1.0); EOS # 0.2 10^3/uL (0.0-0.5); EOS % 3.4 % (0.0-3.0); HEMATOCRIT 28.9 % (42.0-52.0); HEMOGLOBIN 9.2 g/dl (13.5-17.5); LYMPH # 1.1 10^3/uL (1.5-5.0); LYMPH % 20.3 % (24.0-44.0); MEAN CORPUSCULAR HGB CONC 31.8 g/dl (32.0-36.5); MEAN CORPUSCULAR VOLUME 87.8 fl (80.0-96.0); MONO # 0.4 10^3/uL (0.0-0.8); NEUTROPHILS # 3.5 10^3/uL (1.5-8.5); NEUTROPHILS % 67.1 % (36.0-66.0); PLATELET COUNT, AUTOMATED 200 10^3/uL (150-450); RED BLOOD COUNT 3.29 10^6/uL (4.30-6.10); WHITE BLOOD COUNT 5.3 10^3/uL (4.0-10.0)
[2022-02-08 07:40] LABS: ALBUMIN 2.7 GM/DL (3.2-5.2); ALT/SGPT 15 U/L (12-78); BILIRUBIN,TOTAL 0.2 MG/DL (0.2-1.0); BLOOD UREA NITROGEN 16 MG/DL (7-18); CALCIUM LEVEL 8.8 MG/DL (8.8-10.2); CARBON DIOXIDE LEVEL 27 MEQ/L (21-32); CHLORIDE LEVEL 108 MEQ/L (98-107); CREATININE FOR GFR 1.06 MG/DL (0.70-1.30); GLOMERULAR FILTRATION RATE > 60.0 (>42); GLUCOSE, FASTING 181 MG/DL (70-100); MAGNESIUM LEVEL 1.9 MG/DL (1.8-2.4); POTASSIUM SERUM 3.6 MEQ/L (3.5-5.1); SODIUM LEVEL 142 MEQ/L (136-145); TOTAL PROTEIN 6.2 GM/DL (6.4-8.2)
[2022-02-08] MEDS: VANCOMYCIN HCL 1,000 MG, VIAL MATE ADAPTER 1 EACH in NS 250 ML IV SCH ×2 (08:41→20:18)
[2022-02-08] MEDS: OCUVITE 1 TAB PO SCH ×2 (08:42→20:32)
[2022-02-08] MEDS: ASPIRIN 81MG ENTERIC TABLET PO SCH (08:42)
[2022-02-08] MEDS: hydroCHLOROthiazide 12.5 MG CAPSULE PO SCH (08:42)
[2022-02-08] MEDS: FERROUS SULFATE 325MG TAB PO SCH ×2 (08:43→20:32)
[2022-02-08] MEDS: METOPROLOL TART 25 MG TABLET PO SCH ×2 (08:43→20:32)
[2022-02-08] MEDS: ENOXAPARIN 40MG/0.4ML SYRINGE (J1650 PER 10MG) SC SCH (08:43)
[2022-02-08] MEDS: OMEPRAZOLE 20MG CAP PO SCH (08:43)
[2022-02-08] MEDS: CYANOCOBALAMIN 500 MCG TAB PO SCH (08:43)
[2022-02-08] MEDS: INSULIN LISPRO (NovoLOG) PER UNIT SC SCH ×4 (08:44→20:46)
[2022-02-08] MEDS: CEFEPIME HCL 2 GM in D5W MINI-BAG PLUS 50 ML IV SCH (16:30)
[2022-02-08] MEDS: CLOPIDOGREL 75 MG TAB PO SCH (20:32)
[2022-02-08] MEDS: ATORVASTATIN 20 MG TAB PO SCH (20:32)
[2022-02-08] MEDS ORDERED: LEVEMIR (INSULIN DETEMIR) 1 UNITS/0.01ML SC SCH (21:00)
[2022-02-09] VITALS (8 sets, daily range): BP systolic 107–182; BP diastolic 65–88
[2022-02-09] MEDS: CEFEPIME HCL 2 GM in D5W MINI-BAG PLUS 50 ML IV SCH ×3 (00:01→23:47)
[2022-02-09 06:23] LABS: BASO % 0.6 % (0.0-1.0); EOS # 0.2 10^3/uL (0.0-0.5); EOS % 3.2 % (0.0-3.0); HEMATOCRIT 31.7 % (42.0-52.0); HEMOGLOBIN 10.1 g/dl (13.5-17.5); LYMPH # 0.8 10^3/uL (1.5-5.0); LYMPH % 12.3 % (24.0-44.0); MEAN CORPUSCULAR HEMOGLOBIN 27.7 pg (27.0-33.0); MEAN CORPUSCULAR HGB CONC 31.9 g/dl (32.0-36.5); MEAN CORPUSCULAR VOLUME 87.1 fl (80.0-96.0); MONO # 0.5 10^3/uL (0.0-0.8); MONO % 7.4 % (2.0-8.0); PLATELET COUNT, AUTOMATED 198 10^3/uL (150-450); RED BLOOD COUNT 3.64 10^6/uL (4.30-6.10); WHITE BLOOD COUNT 6.5 10^3/uL (4.0-10.0)
[2022-02-09 07:23] LABS: ALBUMIN 2.7 GM/DL (3.2-5.2); BILIRUBIN,TOTAL 0.5 MG/DL (0.2-1.0); CALCIUM LEVEL 8.5 MG/DL (8.8-10.2); CREATININE FOR GFR 1.26 MG/DL (0.70-1.30); GLOMERULAR FILTRATION RATE 58.8 (>42); MAGNESIUM LEVEL 1.9 MG/DL (1.8-2.4); POTASSIUM SERUM 3.8 MEQ/L (3.5-5.1); TOTAL PROTEIN 6.2 GM/DL (6.4-8.2)
[2022-02-09 08:38] LABS: VANCOMYCIN LEVEL TROUGH 18.3 UG/ML (10.0-20.0)
[2022-02-09] MEDS ORDERED: MORPHINE 2 MG/ML 1ML VIAL IV ONE (08:45)
[2022-02-09] MEDS: ENOXAPARIN 40MG/0.4ML SYRINGE (J1650 PER 10MG) SC SCH (08:48)
[2022-02-09] MEDS: INSULIN LISPRO (NovoLOG) PER UNIT SC SCH ×4 (08:49→20:45)
[2022-02-09] MEDS: OCUVITE 1 TAB PO SCH ×2 (08:49→21:23)
[2022-02-09] MEDS: hydroCHLOROthiazide 12.5 MG CAPSULE PO SCH (08:49)
[2022-02-09] MEDS: CYANOCOBALAMIN 500 MCG TAB PO SCH (08:50)
[2022-02-09] MEDS: ASPIRIN 81MG ENTERIC TABLET PO SCH (08:50)
[2022-02-09] MEDS: OMEPRAZOLE 20MG CAP PO SCH (08:50)
[2022-02-09] MEDS: FERROUS SULFATE 325MG TAB PO SCH ×2 (08:51→21:23)
[2022-02-09] MEDS: METOPROLOL TART 25 MG TABLET PO SCH ×2 (08:51→21:26)
[2022-02-09] MEDS: VANCOMYCIN HCL 750 MG, VIAL MATE ADAPTER 1 EACH in NS 250 ML IV SCH ×2 (09:39→10:50)
[2022-02-09] MEDS ORDERED: hydroCHLOROthiazide 12.5 MG CAPSULE PO ONE (11:15)
[2022-02-09] MEDS ORDERED: ACETAMINOPHEN 500 MG TAB PO PRN (11:40)
[2022-02-09] MEDS ORDERED: MORPHINE 2 MG/ML 1ML VIAL IV PRN (13:00)
[2022-02-09] MEDS ORDERED: LEVEMIR (INSULIN DETEMIR) 1 UNITS/0.01ML SC SCH (21:00)
[2022-02-09] MEDS: CLOPIDOGREL 75 MG TAB PO SCH (21:23)
[2022-02-09] MEDS: ATORVASTATIN 20 MG TAB PO SCH (21:24)
[2022-02-09] MEDS ORDERED: NORCO, ANEXSIA 5/325MG TABLET (HYDROcodone/ACETAMINOPHEN) PO ONE (21:35)
[2022-02-10 05:57] VITALS: BP 166/67
[2022-02-10 07:19] LABS: BASO % 0.6 % (0.0-1.0); EOS # 0.3 10^3/uL (0.0-0.5); EOS % 4.9 % (0.0-3.0); HEMATOCRIT 30.7 % (42.0-52.0); HEMOGLOBIN 9.8 g/dl (13.5-17.5); LYMPH # 1.1 10^3/uL (1.5-5.0); LYMPH % 16.9 % (24.0-44.0); MEAN CORPUSCULAR HEMOGLOBIN 27.7 pg (27.0-33.0); MEAN CORPUSCULAR HGB CONC 31.9 g/dl (32.0-36.5); MEAN CORPUSCULAR VOLUME 86.7 fl (80.0-96.0); MONO # 0.5 10^3/uL (0.0-0.8); MONO % 8.3 % (2.0-8.0); NEUTROPHILS # 4.4 10^3/uL (1.5-8.5); NEUTROPHILS % 68.7 % (36.0-66.0); PLATELET COUNT, AUTOMATED 199 10^3/uL (150-450); RED BLOOD COUNT 3.54 10^6/uL (4.30-6.10); WHITE BLOOD COUNT 6.4 10^3/uL (4.0-10.0)
[2022-02-10 07:48] LABS: ALT/SGPT 16 U/L (12-78); BLOOD UREA NITROGEN 15 MG/DL (7-18); CALCIUM LEVEL 8.9 MG/DL (8.8-10.2); CARBON DIOXIDE LEVEL 24 MEQ/L (21-32); CHLORIDE LEVEL 107 MEQ/L (98-107); CREATININE FOR GFR 1.22 MG/DL (0.70-1.30); GLOMERULAR FILTRATION RATE > 60.0 (>42); GLUCOSE, FASTING 187 MG/DL (70-100); POTASSIUM SERUM 3.6 MEQ/L (3.5-5.1); SODIUM LEVEL 140 MEQ/L (136-145)
[2022-02-10 07:49] LABS: ALBUMIN 2.8 GM/DL (3.2-5.2); BILIRUBIN,TOTAL 0.3 MG/DL (0.2-1.0); C REACTIVE PROTEIN QUANTITATIV 2.09 MG/DL (0.00-0.30); TOTAL PROTEIN 6.3 GM/DL (6.4-8.2)
[2022-02-10 07:51] LABS: ERYTHROCYTE SEDIMENTATION RATE 63 mm/hr (0-20)
[2022-02-10] MEDS: ASPIRIN 81MG ENTERIC TABLET PO SCH (08:43)
[2022-02-10] MEDS: OCUVITE 1 TAB PO SCH (08:43)
[2022-02-10] MEDS: ENOXAPARIN 40MG/0.4ML SYRINGE (J1650 PER 10MG) SC SCH (08:43)
[2022-02-10] MEDS: INSULIN LISPRO (NovoLOG) PER UNIT SC SCH ×2 (08:43→12:00)
[2022-02-10] MEDS: CYANOCOBALAMIN 500 MCG TAB PO SCH (08:44)
[2022-02-10] MEDS: FERROUS SULFATE 325MG TAB PO SCH (08:44)
[2022-02-10] MEDS: OMEPRAZOLE 20MG CAP PO SCH (08:44)
[2022-02-10 08:45] VITALS: BP 168/74
[2022-02-10] MEDS: METOPROLOL TART 25 MG TABLET PO SCH (08:45)
[2022-02-10] MEDS: VANCOMYCIN HCL 750 MG, VIAL MATE ADAPTER 1 EACH in NS 250 ML IV SCH ×2 (10:09→11:20)
[2022-02-10] MEDS ORDERED: ACET-683 PO (11:02)
[2022-02-10] MEDS ORDERED: LISI20TA37 PO (11:10)
[2022-02-10] MEDS ORDERED: LEVEMIR (INSULIN DETEMIR) 1 UNITS/0.01ML SC SCH (21:00)
== END 2022-02-10 14:23 | disposition home or self-care (01) | DRG 301 ==
LOC: M ED 15:09 → M ED INP 21:11 → ENRESERV 23:32 → M MSPAV 02-08 00:48
PROVIDERS: ADMIT Family Medicine; ATTEND Internal Medicine
PROC: 0JBR3ZZ Excision of Left Foot Subcutaneous Tissue and Fascia, Percutaneous Approach (ICD-10-PCS; principal; 2022-02-10)
DX: E11.51 Type 2 diabetes mellitus with diabetic peripheral angiopathy without gangrene (principal); E11.621 Type 2 diabetes mellitus with foot ulcer; I73.9 Peripheral vascular disease, unspecified; L97.529 Non-pressure chronic ulcer of other part of left foot with unspecified severity; I25.10 Atherosclerotic heart disease of native coronary artery without angina pectoris; K21.9 Gastro-esophageal reflux disease without esophagitis; I10 Essential (primary) hypertension; D64.9 Anemia, unspecified; Z98.41 Cataract extraction status, right eye; Z98.42 Cataract extraction status, left eye; Z95.5 Presence of coronary angioplasty implant and graft; Z95.828 Presence of other vascular implants and grafts; Z20.822 Contact with and (suspected) exposure to COVID-19; Z86.73 Personal history of transient ischemic attack (TIA), and cerebral infarction without residual deficits; M19.90 Unspecified osteoarthritis, unspecified site; Z89.022 Acquired absence of left finger(s); Z87.891 Personal history of nicotine dependence; Z79.82 Long term (current) use of aspirin; Z79.84 Long term (current) use of oral hypoglycemic drugs; Z79.899 Other long term (current) drug therapy

== ENCOUNTER → 2022-02-14 | Outpatient (POV) | payer MEDICARE ==
[~2022-02-14] VITALS: Ht 175.3 cm; Wt 85.9 kg
[~2022-02-14] MED LIST changes: +ACET-683 PO; +ACET-897 PO; +ASPI-161 PO; +CYAN100049 PO; +FERR325T3 PO; +GLIP5TAB20 PO; +LISI20TA37 PO
[2022-02-14 15:30] VITALS: BP 160/70
== END ==
LOC: EEVIPCON 15:21 → M IRPOV 15:21
PROVIDERS: ATTEND Radiology Diagnostic Radiology
DX: E11.622 Type 2 diabetes mellitus with other skin ulcer (principal); M79.605 Pain in left leg; L97.929 Non-pressure chronic ulcer of unspecified part of left lower leg with unspecified severity; E78.5 Hyperlipidemia, unspecified; I10 Essential (primary) hypertension; I25.10 Atherosclerotic heart disease of native coronary artery without angina pectoris; Z79.82 Long term (current) use of aspirin; Z79.84 Long term (current) use of oral hypoglycemic drugs; Z79.899 Other long term (current) drug therapy; Z86.73 Personal history of transient ischemic attack (TIA), and cerebral infarction without residual deficits; Z87.891 Personal history of nicotine dependence; Z95.828 Presence of other vascular implants and grafts

== ENCOUNTER → 2022-05-23 | Outpatient (POV) | payer MEDICARE ==
[~2022-05-23] VITALS: Ht 175.3 cm; Wt 81.8 kg
[~2022-05-23] MED LIST changes: +AMLO1TAB25 PO; +DOXY100T PO; +ELIQ5TAB PO; +GABA600T4 PO; +GLIP5TAB8 PO; +LINE1TAB6 PO; +LISI40TA4 PO; +MAGN400T2 PO; +MED REC COMMENT; +METO1TAB87 PO; +PANT40TA29 PO; +POTA-136 PO; +RISATAB3 PO
[2022-05-23 14:05] VITALS: BP 131/61
== END ==
LOC: M IRPOV 14:00
PROVIDERS: ATTEND Radiology Diagnostic Radiology
DX: T87.54 Necrosis of amputation stump, left lower extremity (principal); I70.239 Atherosclerosis of native arteries of right leg with ulceration of unspecified site; E11.9 Type 2 diabetes mellitus without complications; I10 Essential (primary) hypertension; E78.5 Hyperlipidemia, unspecified; I25.10 Atherosclerotic heart disease of native coronary artery without angina pectoris; Z89.512 Acquired absence of left leg below knee

== ENCOUNTER → 2022-06-18 | Outpatient (CLI) | payer MEDICARE ==
[~2022-06-18] MED LIST changes: +SERT-141 PO
== END ==
LOC: M LABSMTC 11:33
PROVIDERS: ATTEND Anesthesiology
DX: Z01.812 Encounter for preprocedural laboratory examination (principal); Z20.822 Contact with and (suspected) exposure to COVID-19

== ENCOUNTER → 2022-06-22 | Outpatient (CLI) | payer MEDICARE ==
[~2022-06-22] MED LIST changes: +ISOVUE-300 61% 50ML VIAL As Ordered ONE; +LIDOCAINE 1% MDV 20ML VIAL As Ordered ONE; +LR 1,000 ML IV SCH; +MIDAZOLAM INJ 2MG/2ML VIAL (J2250 PER 1MG) As Ordered ONE; +NS 1,000 ML IV SCH; +diphenhydrAMINE 50MG/ML VIAL (J1200) As Ordered ONE; +fentaNYL 100 MCG/2 ML INJECTION As Ordered ONE
[2022-06-22 15:00] VITALS: BP 147/67
== END ==
LOC: M IRPRO 06:29
PROVIDERS: ATTEND Radiology Diagnostic Radiology
DX: T87.89 Other complications of amputation stump (principal); L97.919 Non-pressure chronic ulcer of unspecified part of right lower leg with unspecified severity
CPT/HCPCS: 37224; 75630; C1769; C1887; C1894; J1644; J2250; J3010; Q9967

== ENCOUNTER → 2022-07-18 | Outpatient (POV) | payer MEDICARE ==
[~2022-07-18] VITALS: Ht 175.3 cm; Wt 73.1 kg
[~2022-07-18] MED LIST changes: -ISOVUE-300 61% 50ML VIAL As Ordered ONE; -LIDOCAINE 1% MDV 20ML VIAL As Ordered ONE; -LR 1,000 ML IV SCH; -MIDAZOLAM INJ 2MG/2ML VIAL (J2250 PER 1MG) As Ordered ONE; -NS 1,000 ML IV SCH; -diphenhydrAMINE 50MG/ML VIAL (J1200) As Ordered ONE; -fentaNYL 100 MCG/2 ML INJECTION As Ordered ONE
[2022-07-18 10:50] VITALS: BP 128/68
== END ==
LOC: M IRPOV 10:40
PROVIDERS: ATTEND Radiology Diagnostic Radiology
DX: Z48.812 Encounter for surgical aftercare following surgery on the circulatory system (principal); Z89.512 Acquired absence of left leg below knee